=== PATIENT | female | born 1950 | race Two or more races ===

== ENCOUNTER 2023-08-16 12:02 | Emergency (ER) | payer OTHER ==
[~2023-08-16] VITALS: Ht 165.1 cm; Wt 63.5 kg
[2023-08-16] MEDS ORDERED: ATACAND4 MG PO (13:12)
[2023-08-16] MEDS ORDERED: ASPIRIN81 MG PO (13:12)
[2023-08-16] MEDS ORDERED: PLAVIX75 MG PO (13:12)
[2023-08-16] MEDS ORDERED: LEVOTHYROXINE25 MCG PO (13:12)
[2023-08-16] MEDS ORDERED: LANTUS SOL100 UNIT/1 SQ (13:13)
[2023-08-16 15:38] LABS: HEMATOCRIT 37.6 % (36.0-45.00); HEMOGLOBIN 12.5 g/dL (12.0-15.00); MEAN CELL VOLUME 87.3 fL (80.00-100.00); MEAN CORPUSCULAR HGB CONC 33.2 g/dl (32.0-36.0); PLATELET COUNT 202 K/uL (150-450); RED BLOOD COUNT 4.31 M/uL (4.00-6.00); RED CELL DISTRIBUTION WIDTH 13.9 % (11.5-14.5)
[2023-08-16 15:57] LABS: CALCIUM 9.4 mg/dL (8.5-10.1); CREATININE SERUM 0.92 mg/dL (0.55-1.02); GFR 60.01; POTASSIUM 4.54 mEq/L (3.5-5.1)
== END 2023-08-16 21:03 | disposition home or self-care (01) ==
LOC: ER 12:03
PROVIDERS: General Practice
DX: L03.115 Cellulitis of right lower limb (principal); E11.9 Type 2 diabetes mellitus without complications; Z79.4 Long term (current) use of insulin; I10 Essential (primary) hypertension; Z91.018 Allergy to other foods